=== PATIENT | male | born 1995 | race Caucasian/White ===

== ENCOUNTER 2021-06-18 03:23 | Emergency (ER) | payer OTHER ==
[~2021-06-18] VITALS: Ht 170.2 cm; Wt 63.5 kg
[2021-06-18] MEDS ORDERED: VITAMIN C WIT1000 MG PO (05:39)
[2021-06-18] MEDS ORDERED: MOLNUPIRAVIR (200 MG PO (05:39)
[2021-06-18] MEDS ORDERED: MELATONIN5 M2 PO (05:39)
[2021-06-18] MEDS ORDERED: PEPCID AC20 MG PO (05:39)
[2021-06-18] MEDS ORDERED: MUCINEX DM ER1 EAC1 PO (05:39)
[2021-06-18] MEDS ORDERED: ACETAMINOPHEN650 M2 PO (05:39)
[2021-06-19] MEDS ORDERED: ACETAMINOPHEN650 M2 (07:11)
== END 2021-06-18 05:55 | disposition home or self-care (01) ==
LOC: ER 03:23
DX: U07.1 COVID-19 (principal); B34.9 Viral infection, unspecified; J06.9 Acute upper respiratory infection, unspecified

== ENCOUNTER 2021-11-15 01:04 | Emergency (ER) | payer OTHER ==
[~2021-11-15] VITALS: Ht 170.2 cm; Wt 63.5 kg
[~2021-11-15 01:04] MED LIST: ACETAMINOPHEN650 M2; ACETAMINOPHEN650 M2 PO; MELATONIN5 M2 PO; MOLNUPIRAVIR (200 MG PO; MUCINEX DM ER1 EAC1 PO; PEPCID AC20 MG PO; VITAMIN C WIT1000 MG PO
[2021-11-15] MEDS ORDERED: AZITHROMYCIN500 MG PO (04:18)
[2021-11-15] MEDS ORDERED: DICLOFENAC POTA50 MG PO (04:18)
[2021-11-15] MEDS ORDERED: ZYRTEC10 MG PO (04:18)
== END 2021-11-15 04:22 | disposition home or self-care (01) ==
LOC: ER 01:04
DX: J02.9 Acute pharyngitis, unspecified (principal); J30.9 Allergic rhinitis, unspecified; J06.9 Acute upper respiratory infection, unspecified

== ENCOUNTER 2022-06-11 19:48 | Emergency (ER) | payer OTHER ==
[~2022-06-11] VITALS: Ht 170.2 cm; Wt 63.5 kg
[~2022-06-11 19:48] MED LIST changes: +AZITHROMYCIN500 MG PO; +DICLOFENAC POTA50 MG PO; +ZYRTEC10 MG PO
== END 2022-06-12 00:15 | disposition home or self-care (01) ==
LOC: ER 19:48
DX: K52.9 Noninfective gastroenteritis and colitis, unspecified (principal); R10.9 Unspecified abdominal pain; A08.8 Other specified intestinal infections

== ENCOUNTER 2022-08-30 21:30 | Emergency (ER) | payer OTHER ==
[~2022-08-30] VITALS: Ht 170.2 cm; Wt 62.1 kg
== END 2022-08-30 22:38 | disposition home or self-care (01) ==
LOC: ER 21:30
DX: M54.89 Other dorsalgia (principal)

== ENCOUNTER 2022-09-22 15:17 | Emergency (ER) | payer OTHER ==
[~2022-09-22] VITALS: Ht 170.2 cm; Wt 65.8 kg
== END 2022-09-22 19:54 | disposition home or self-care (01) ==
LOC: ER 15:17
DX: S62.339A Displaced fracture of neck of unspecified metacarpal bone, initial encounter for closed fracture (principal); X58.XXXA Exposure to other specified factors, initial encounter; Y93.89 Activity, other specified; Y92.89 Other specified places as the place of occurrence of the external cause; Y99.8 Other external cause status

== ENCOUNTER 2022-10-16 13:58 | Outpatient (CLI) | payer OTHER | END 2022-10-16 14:07 | disposition home or self-care (01) | LOC: RAD 13:58 | PROVIDERS: ATTEND Orthopaedic Surgery | DX: S62.326S Displaced fracture of shaft of fifth metacarpal bone, right hand, sequela (principal) ==

== ENCOUNTER 2023-05-10 11:54 | Emergency (ER) | payer OTHER ==
[~2023-05-10] VITALS: Ht 170.2 cm; Wt 63.5 kg
[2023-05-10] MEDS ORDERED: OxyCODONE HCL/APAP UD (PERCOCET) PO ONE (13:15)
[2023-05-10 13:18] LABS: HEMATOCRIT 45.1 % (39.0-48.0); HEMOGLOBIN 15.6 g/dL (13-16.00); MEAN CELL VOLUME 86.9 fL (80.0-100.00); MEAN CORPUSCULAR HEMOGLOBIN 30.1 pg (27.00-32.0); MEAN CORPUSCULAR HGB CONC 34.7 g/dl (32.0-36.0); PLATELET COUNT 230 K/uL (150-450); RED BLOOD COUNT 5.19 M/uL (4.00-6.00)
[2023-05-10 13:45] LABS: CALCIUM 10.3 mg/dL (8.5-10.1); CREATININE SERUM 0.87 mg/dL (0.70-1.30); GFR 106.07; POTASSIUM 4.22 mEq/L (3.5-5.1)
[2023-05-10] MEDS ORDERED: MEPERIDINE HCL/PF 50 MG/ML VIAL IM ONE (14:30)
[2023-05-10] MEDS ORDERED: KETOROLAC TROMETHAMINE 30 MG VIAL IM ONE (14:30)
== END 2023-05-10 15:13 | disposition home or self-care (01) ==
LOC: ER 11:55
PROVIDERS: Emergency Medicine
DX: G43.909 Migraine, unspecified, not intractable, without status migrainosus (principal); R53.81 Other malaise